=== PATIENT | male | born 1970 | race Asian ===

== ENCOUNTER 2024-12-12 06:40 | Day surgery (SDC) | payer OTHER ==
[~2024-12-12] VITALS: Ht 165.1 cm; Wt 74.8 kg
[~2024-12-12 06:40] MED LIST: DIOVAN HCT PO; MAGNESIUM GLYC100 M1 PO; NORVASC PO
[2024-12-12] MEDS ORDERED: FAMOTIDINE 10MG/ML 2ML SDV IV ONE (06:50)
[2024-12-12] MEDS ORDERED: SODIUM CHLORIDE 0.9% 1,000 ML IV ONE (06:50)
[2024-12-12 09:00] VITALS: BP 127/105
[2024-12-12] MEDS ORDERED: GLYCOPYRROLATE 0.2 MG/ML IV ONE (13:03)
[2024-12-12] MEDS ORDERED: PROPOFOL 500 MG/50 ML VIAL IV ONE (13:03)
== END 2024-12-12 08:52 | disposition home or self-care (01) | DRG 395 ==
LOC: ORM 06:40
PROVIDERS: ATTEND Surgery
PROC: 0DBN8ZX Excision of Sigmoid Colon, Via Natural or Artificial Opening Endoscopic, Diagnostic (ICD-10-PCS; principal; 2024-12-12)
PROC: 0DJ08ZZ Inspection of Upper Intestinal Tract, Via Natural or Artificial Opening Endoscopic (ICD-10-PCS; 2024-12-12)
DX: D12.5 Benign neoplasm of sigmoid colon (principal); K64.8 Other hemorrhoids; I10 Essential (primary) hypertension; K44.9 Diaphragmatic hernia without obstruction or gangrene; K21.9 Gastro-esophageal reflux disease without esophagitis; K64.4 Residual hemorrhoidal skin tags
CPT/HCPCS: J1596